=== PATIENT | female | born 1975 ===

== ENCOUNTER → 2017-06-10 | Emergency (ER) | payer OTHER ==
[~2017-06-10] VITALS: Ht 170.2 cm; Wt 88.5 kg
[~2017-06-10] MED LIST: SYNTHROID50 MCG
== END | disposition home or self-care (01) ==
LOC: ER 08:27
DX: R10.31 Right lower quadrant pain (principal); R10.11 Right upper quadrant pain

== ENCOUNTER 2018-04-30 13:25 | Emergency (ER) | payer OTHER ==
[~2018-04-30] VITALS: Ht 170.2 cm; Wt 81.6 kg
== END 2018-04-30 17:03 | disposition home or self-care (01) ==
LOC: ER 13:25
DX: J06.9 Acute upper respiratory infection, unspecified (principal)